=== PATIENT | female | born 1995 | race Caucasian/White ===

== ENCOUNTER 2018-09-14 19:09 | Emergency (ER) | payer BC, OTHER | END 2018-09-14 21:17 | disposition home or self-care (01) | LOC: ER FS 19:09 ==

== ENCOUNTER 2019-07-25 22:13 | Emergency (ER) | payer BC ==
[~2019-07-25] VITALS: Ht 162.6 cm; Wt 58.2 kg
[~2019-07-25 22:13] MED LIST: PROC-1 PO
--- NOTE | 2019-07-25 22:24 | ED GU-Female ---
General Chief Complaint: Abdominal/GI Problems Stated Complaint: ABD PAIN Source: patient Exam Limitations: no limitations History of Present Illness Date Seen by Provider: Jul 25, 2019 Time Seen by Provider: 22:23 Initial Comments Presents with 5 days of progressing upper abdominal pain. Initially intermittent for a few days and today has been constant. Associated nausea and vomiting 1 today. Also decreased appetite. Pain is sharp, nonradiating and worse at night. Denies any weight loss, blood in her stool or dark tarry stools. Denies previous occurrence of similar pain. Has not taken any antacids, has actually been taking ibuprofen for her stomach pain. Allergies and Home Medications Allergies Coded Allergies: hydrocodone (Verified Allergy, Mild, 09/14/18) Makes her headaches worse Home Medications Famotidine 10 Mg Tablet, 20 MG PO BID Prescribed by: NOA PEREZ on 07/25/192239 Ondansetron 4 Mg Tab.rapdis, 4 MG PO TID Prescribed by: NOA PEREZ on 07/25/192239 Prochlorperazine Maleate 10 Mg Tablet, 10 MG PO Q6H PRN for NAUSEA/VOMITING Prescribed by: ANJALI JOHNSTON on 09/14/182113 Patient Home Medication List Home Medication List Reviewed: Yes Review of Systems Review of Systems Constitutional: No fever, No malaise, No weakness Respiratory: No cough, No short of breath Cardiovascular: No chest pain, No edema, No palpitations Gastrointestinal: see HPI, abdominal pain; No constipation, No diarrhea, No dysphagia, No hematemesis, No heartburn, No jaundice; nausea, vomiting Genitourinary: no symptoms reported; denies dysuria, denies frequency, denies flank pain, denies hematuria Skin: No change in color, No lesions, No rash Past Dodrdla-Ikkpff-Bkccem Hx Patient Social History Recent Foreign Travel: No Contact w/Someone Who Travel: No Recent Hopitalizations: No Seasonal Allergies Seasonal Allergies: No Past Medical History Surgeries: Yes Tonsillectomy Respiratory: Yes Asthma Cardiac: No Neurological: Yes Headaches /Migraines Genitourinary: No Gastrointestinal: No Musculoskeletal: Yes Scoliosis Endocrine: No HEENT: No Cancer: No Psychosocial: No Integumentary: No Physical Exam Vital Signs Vital Signs - First Documented 07/25/19 22:25 Temp 36.4 Pulse 60 Resp 16 B/P (MAP) 119/73 (88) Pulse Ox 100 O2 Delivery Room Air Capillary Refill : Height, Weight, BMI Height: 5'2.00" Weight: 125lbs. 0oz. [id number]; BMI Method:Stated General Appearance: WD/WN, no apparent distress Cardiovascular: regular rate, rhythm, no edema Respiratory: chest non-tender, lungs clear Gastrointestinal: normal bowel sounds, soft, no organomegaly, no pulsatile mass; No distended, No guarding, No rebound; tenderness (mild epigastric); No hernia, No mass Back: normal inspection, no CVA tenderness Progress/Results/Core Measures Suspected Sepsis SIRS Temperature: Pulse: Respiratory Rate: Laboratory Tests 07/25/19 22:45: White Blood Count 7.3 Blood Pressure / Mean: Laboratory Tests 07/25/19 22:45: Creatinine 0.76, Platelet Count 286, Total Bilirubin 0.2 Results/Orders Lab Results Laboratory Tests Test 07/25/19 22:25 07/25/19 22:45 Range/Units Urine Color PALE YELLOW Urine Clarity CLEAR Urine pH 6.0 5-9 Urine Specific [place] <=1.005 1.016-1.022 Urine Protein NEGATIVE NEGATIVE Urine Glucose (UA) NEGATIVE NEGATIVE Urine Ketones NEGATIVE NEGATIVE Urine Nitrite NEGATIVE NEGATIVE Urine Bilirubin NEGATIVE NEGATIVE Urine Urobilinogen 0.2 < = 1.0 MG/DL Urine Leukocyte Esterase NEGATIVE NEGATIVE Urine RBC (Auto) NEGATIVE NEGATIVE Urine RBC NONE /HPF Urine WBC NONE /HPF Urine Squamous Epithelial Cells RARE /HPF Urine Crystals NONE /LPF Urine Bacteria NEGATIVE /HPF Urine Casts NONE /LPF Urine Mucus NEGATIVE /LPF Urine Culture Indicated NO Urine Test NEGATIVE NEGATIVE White Blood Count 7.3 4.3-11.0 10^3/uL Red Blood Count 4.52 4.35-5.85 10^6/uL Hemoglobin 12.8 11.5-16.0 G/DL Hematocrit 37 35-52 % Mean Corpuscular Volume 82 80-99 FL Mean Corpuscular Hemoglobin 28 25-34 PG Mean Corpuscular Hemoglobin Concent 35 32-36 G/DL Red Cell Distribution Width 12.5 10.0-14.5 % Platelet Count 286 130-400 10^3/uL Mean Platelet Volume 9.4 7.4-10.4 FL Neutrophils (%) (Auto) 48 42-75 % Lymphocytes (%) (Auto) 38 12-44 % Monocytes (%) (Auto) 11 0-12 % Eosinophils (%) (Auto) 2 0-10 % Basophils (%) (Auto) 1 0-10 % Neutrophils # (Auto) 3.5 1.8-7.8 X 10^3 Lymphocytes # (Auto) 2.7 1.0-4.0 X 10^3 Monocytes # (Auto) 0.8 0.0-1.0 X 10^3 Eosinophils # (Auto) 0.2 0.0-0.3 10^3/uL Basophils # (Auto) 0.0 0.0-0.1 10^3/uL Sodium Level 135 135-145 MMOL/L Potassium Level 3.8 3.6-5.0 MMOL/L Chloride Level 100 98-107 MMOL/L Carbon Dioxide Level 23 21-32 MMOL/L Anion Gap 12 5-14 MMOL/L Blood Urea Nitrogen 16 7-18 MG/DL Creatinine 0.76 0.60-1.30 MG/DL Estimat Glomerular Filtration Rate > 60 BUN/Creatinine Ratio 21 Glucose Level 92 70-105 MG/DL Calcium Level 9.3 8.5-10.1 MG/DL Corrected Calcium 9.4 8.5-10.1 MG/DL Total Bilirubin 0.2 0.1-1.0 MG/DL Aspartate Amino Transf (AST/SGOT) 15 5-34 U/L Alanine Aminotransferase (ALT/SGPT) 9 0-55 U/L Alkaline Phosphatase 43 40-136 U/L Total Protein 6.8 6.4-8.2 GM/DL Albumin 3.9 3.2-4.5 GM/DL Lipase 44 8-78 U/L My Orders Orders - ROVENSTINE,NOA L DO Ua Culture If Indicated (07/25/19 22:21) Hcg,Qualitative Urine (07/25/19 22:21) Cbc With Automated Diff (07/25/19 22:29) Comprehensive Metabolic Panel (07/25/19 22:29) Lipase (07/25/19 22:29) Abdomen (Kub) 1 View (07/25/19 22:29) Famotidine Tablet (Pepcid Tablet) (07/25/19 22:30) Ondansetron Oral Dissolve Tab (Zofran (07/25/19 22:29) Antacid Suspension (Mylanta Suspension (07/25/19 22:30) Lidocaine 2% Viscous 15 Ml (Xylocaine Vi (07/25/19 22:30) Medications Given in ED Current Medications Medications Dose Ordered Sig/Ed Route Start Time Stop Time Status Last Admin Dose Admin Al Hydrox/Mg Hydrox/Simethicone 30 ml ONCE ONCE PO 07/25/19 22:30 07/25/19 22:32 DC 07/25/19 22:42 30 ML Famotidine 20 mg ONCE ONCE PO 07/25/19 22:30 07/25/19 22:32 DC 07/25/19 22:42 20 MG Lidocaine HCl 5 ml ONCE ONCE PO 07/25/19 22:30 07/25/19 22:33 DC 07/25/19 22:42 5 ML Vital Signs/I&O 07/25/19 07/25/19 22:25 23:35 Temp 36.4 Pulse 60 68 Resp 16 16 B/P (MAP) 119/73 (88) 108/63 Pulse Ox 100 97 O2 Delivery Room Air Room Air Capillary Refill : Departure Impression Primary Impression: Epigastric abdominal pain Disposition: HOME, SELF-CARE Condition: Improved Departure-Patient Inst. Referrals: JOE MAN MD (PCP/Family) Primary Care Physician Patient Instructions: Gastritis (DC) Scripts Ondansetron (Ondansetron Odt) 4 Mg Tab.rapdis 4 MG PO TID for Nausea, #10 TAB Prov: NOA PEREZ DO 07/25/19 Famotidine (Pepcid AC) 10 Mg Tablet 20 MG PO BID, #30 TAB Prov: MESSISTNOA BURR DO 07/25/19 NOA PEREZ DO Jul 25, 2019 22:24
[2019-07-25] MEDS ORDERED: ONDANSETRON 4 MG (ZOFRAN) ORAL DISSOLVE TAB PO STA (22:29)
[2019-07-25] MEDS ORDERED: LIDOCAINE 2% VISCOUS 15 ML UDC PO ONE (22:30)
[2019-07-25] MEDS ORDERED: FAMOTIDINE 20 MG (PEPCID) TABLET PO ONE (22:30)
[2019-07-25] MEDS ORDERED: ANTACID SUSP 30 ML UDC (MYLANTA) PO ONE (22:30)
[2019-07-25 22:36] LABS: BILIRUBIN,URINE NEGATIVE (NEGATIVE); CLARITY,URINE CLEAR; COLOR,URINE PALE YELLOW; GLUCOSE, URINE (UA) NEGATIVE (NEGATIVE); KETONES,URINE NEGATIVE (NEGATIVE); LEUKOCYTE ESTERASE ,URINE NEGATIVE (NEGATIVE); NITRITE,URINE NEGATIVE (NEGATIVE); PROTEIN,URINE NEGATIVE (NEGATIVE)
[2019-07-25 22:37] LABS: BACTERIA,URINE NEGATIVE /HPF; SQUAMOUS EPITHELIAL CELL,UR RARE /HPF
[2019-07-25] MEDS ORDERED: ONDA4TAB11 PO (22:40)
[2019-07-25] MEDS ORDERED: FAMO10TA43 PO (22:40)
[2019-07-25 22:52] LABS: HEMATOCRIT 37 % (35-52); HEMOGLOBIN 12.8 G/DL (11.5-16.0); MEAN CORPUSCULAR HEMOGLOBIN 28 PG (25-34); MEAN CORPUSCULAR HGB CONC 35 G/DL (32-36); MEAN CORPUSCULAR VOLUME 82 FL (80-99); MEAN PLATELET VOLUME 9.4 FL (7.4-10.4); PLATELET COUNT 286 10^3/uL (130-400); RED CELL DISTRIBUTION WIDTH 12.5 % (10.0-14.5); WHITE BLOOD COUNT 7.3 10^3/uL (4.3-11.0)
[2019-07-25 22:53] LABS: BASOPHILS % (AUTO) 1 % (0-10); EOSINOPHILS % (AUTO) 2 % (0-10); LYMPHOCYTES % (AUTO) 38 % (12-44); MONOCYTES % (AUTO) 11 % (0-12); NEUTROPHILS % (AUTO) 48 % (42-75)
[2019-07-25 22:54] LABS: EOSINOPHILS # (AUTO) 0.2 10^3/uL (0.0-0.3); LYMPHOCYTES # (AUTO) 2.7 X 10^3 (1.0-4.0); MONOCYTES # (AUTO) 0.8 X 10^3 (0.0-1.0); NEUTROPHILS # (AUTO) 3.5 X 10^3 (1.8-7.8)
[2019-07-25 23:20] LABS: ALANINE AMINOTRANSFERASE 9 U/L (0-55); ALKALINE PHOSPHATASE 43 U/L (40-136); BILIRUBIN,TOTAL 0.2 MG/DL (0.1-1.0); BUN/CREATININE RATIO 21; CALCIUM 9.3 MG/DL (8.5-10.1); CARBON DIOXIDE 23 MMOL/L (21-32); CHLORIDE 100 MMOL/L (98-107); CREATININE SERUM 0.76 MG/DL (0.60-1.30); GFR ESTIMATED > 60; GLUCOSE 92 MG/DL (70-105); POTASSIUM 3.8 MMOL/L (3.6-5.0); SODIUM 135 MMOL/L (135-145); TOTAL PROTEIN 6.8 GM/DL (6.4-8.2)
[2019-07-25 23:21] LABS: ALBUMIN 3.9 GM/DL (3.2-4.5); LIPASE 44 U/L (8-78)
--- OUTSIDE RECORDS SUMMARY | 2019-07-25 23:29 | XMS REPORT ---
Author Author Clementine Rivera Organization [facility] Address [address] [place] [address] Care Team Providers Care Product Development Coordinator Name Role Phone FRANK Rivera Unavailable PROBLEMS Type Condition ICD9-CM Code [id number] Code Onset Dates Condition S tatus SNOMED Code Problem Mild episode of recurrent major depressive disorder F33.0 Active 606309337 ALLERGIES No Information ENCOUNTERS Encounter Location Date Diagnosis [address] [id number] [address] June, Encounter for surveillance o f contraceptive pills Z30.41 [facility] [address] [id number], [place] [address] June, Open bite, right ankle, init ial encounter S91.051A and Bitten by dog, initial encounter W54.0XXA [address] [id number] [address] June, Well woman exam Z01.419 ; Sc reening for STDs (sexually transmitted diseases) Z11.3 ; Encounter for immunization Z23 and Rectal bleeding K62.[address] [id number] [address] May, Mild episode of recurrent ma jason depressive disorder F33.0 ; Rectal bleeding K62.5 ; Encounter for surveillance of contraceptive pills Z30.41 ; Right otitis media, unspecified otitis media type H66.91 ; Yeast infection B37.9 and Neuralgia M79.[address] [id number], [place] [address] May, [facility] [address] [id number], [place] [address] May, Acute recurrent frontal sinu sitis J01.11 [facility] [address] [id number] [address] Apr, [facility] [address] [id number], [place] [address] Mar, Cough R05 ; Exposure to the flu Z20.828 ; Acute frontal sinusitis, recurrence not specified J01.10 and Right otitis media, unspecified otitis media type H66.91 [facility] [address] [id number], [place] [address] Feb, [facility] [address] [id number], [place] [address] Feb, Right otitis media, unspecif ied otitis media type H66.91 [facility] [address] [id number], [place] [address] Feb, [facility] [address] [id number], [place] [address] Jan, Viral URI J06.9 and Cough R0 5 [facility] [address] [id number], [place] [address] Dec, [facility] [address] [id number], [place] [address] Dec, Acute non-recurrent pansinus itis J01.40 [facility] [address] [id number], [place] [address] Aug, Acute nasopharyngitis J00 [facility] [address] [id number], [place] [address] Aug, Acute nonintractable headach e, unspecified headache type R51 ; Nausea R11.0 and Abdominal pain R10.9 [facility] [place] [address] [id number], [place] [address] June, [facility] [address] [id number] [place] [address] June, [address] [id number] [place] [address] Apr, [facility] [address] [facility] [id number] [place] [address] Aug, IMMUNIZATIONS No Known Immunizations SOCIAL HISTORY Never Assessed REASON FOR VISIT PLAN OF CARE VITAL SIGNS MEDICATIONS Unknown Medications RESULTS No Results PROCEDURES No Known procedures INSTRUCTIONS MEDICATIONS ADMINISTERED No Known Medications MEDICAL (GENERAL) HISTORY Type Description Date Medical History depression Medical History asthma - mild intermittent Medical History neuro disorder Hospitalization History pneumonia-when she was a child
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
--- OUTSIDE RECORDS SUMMARY | 2019-07-25 23:29 | XMS REPORT ---
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 for Health Information Technology (ONC [id number].[id number]) and the National Committee for Wire Coiler Machine Operator (NCQA, as an eMeasure certified technology). FOR RECORDS PERTAINING TO PATIENTS WHO ARE OR HAVE BEEN ENROLLED IN A CHEMICAL D EPENDENCY/SUBSTANCE ABUSE PROGRAM, SOME INFORMATION MAY BE OMITTED. This clinica l summary was aggregated from multiple sources. Caution should be exercised in using it in the provision of clinical care. This summary normalizes information from multiple sources, and as a consequence, information in this document may ma terially change the coding, format and clinical context of patient data. In maxi tion, data may be omitted in some cases. CLINICAL DECISIONS SHOULD BE BASED ON T HE PRIMARY CLINICAL RECORDS. [employer] [facility]. provides no warranty or guara ntee of the accuracy or completeness of information in this document.The followi ng information is based on time limited clinical information
[2019-07-25 23:35] VITALS: BP 108/63
--- NOTE | 2019-07-26 06:12 | Diagnostic Imaging Report ---
INDICATION: Intermittent epigastric pain. TIME OF EXAM: 10:37 PM FINDINGS: Bowel gas pattern is unremarkable. No obstruction is seen. There is moderate stool in the right colon. No pathologic calcifications are identified. There is no free air. IMPRESSION: No acute feature is detected. Dictated by: Dictated on workstation # [id number]
== END 2019-07-25 23:35 | disposition home or self-care (01) ==
LOC: EDUNIT# 22:13 → ER FS 22:13
DX: R10.13 Epigastric pain (principal); G43.909 Migraine, unspecified, not intractable, without status migrainosus; Z88.5 Allergy status to narcotic agent
CPT/HCPCS: 36415; 74018; 80053; 81000; 83690; 84703; 85025

== ENCOUNTER 2020-11-07 11:10 | Emergency (ER) | payer BC ==
[~2020-11-07] VITALS: Ht 157 cm; Wt 56.0 kg
[~2020-11-07 11:10] MED LIST changes: +FAMO10TA43 PO; +ONDA4TAB11 PO
[2020-11-07] MEDS ORDERED: ONDANSETRON 4 MG/2 ML (SDV) Z0FRAN ONE (11:21)
[2020-11-07] MEDS ORDERED: NS IV 1000 ML 1,000 ML ONE (11:21)
[2020-11-07] MEDS ORDERED: FAMOTIDINE 20MG/2ML IV (PEPCID) ONE (11:22)
[2020-11-07] MEDS ORDERED: NS IV 1000 ML 1,000 ML IV SCH (11:45)
[2020-11-07] MEDS ORDERED: ONDANSETRON 4 MG/2 ML (SDV) Z0FRAN IVP ONE (11:45)
[2020-11-07] MEDS ORDERED: FAMOTIDINE 20MG/2ML IV (PEPCID) IVP ONE (11:45)
--- NOTE | 2020-11-07 11:46 | ED Abdominal Pain ---
General Chief Complaint: Abdominal/GI Problems Stated Complaint: VOMITING Nursing Triage Note: PT REPORTS SHE DRANK TOO MUCH ALCOHOL AT HER [employer]ING [employer] LAST PM. SHE STARTED VOMITING AT 2200 AND HAS OFF AND ON ALL NIGHT. Source of Information: Patient Exam Limitations: No Limitations History of Present Illness Date Seen by Provider: Nov 07, 2020 Time Seen by Provider: 11:30 Initial Comments Patient is a 25-year-old female who presents with dizziness, nausea vomiting after excessive alcohol intake last night during her wedding. Patient states she has been vomiting for the past 12 hours. Reports mild epigastric pain and headache. No other symptoms or complaints Timing/Duration: 12 Hours Severity/Quality: Mild Location: Other Radiation: Other Activities at Onset: Other Modifying Factors: Improves With Other Allergies and Home Medications Allergies Coded Allergies: hydrocodone (Verified Allergy, Mild, 09/14/18) Makes her headaches worse Patient Home Medication List Home Medication List Reviewed: Yes Famotidine (Pepcid AC) 10 Mg Tablet, 20 MG PO BID Prescribed by: NOA PEREZ on 07/25/190 Ondansetron (Ondansetron Odt) 4 Mg Tab.rapdis, 4 MG PO TID Prescribed by: NOA PEREZ on 07/25/19 2240 Prochlorperazine Maleate (Compazine) 10 Mg Tablet, 10 MG PO Q6H PRN for NAUSEA/VOMITING Prescribed by: ANJALI JOHNSTON on 09/14/182113 Review of Systems Review of Systems Constitutional: see HPI EENTM: See HPI Respiratory: See HPI Cardiovascular: See HPI Gastrointestinal: See HPI Genitourinary: See HPI Musculoskeletal: see HPI Skin: see HPI Psychiatric/Neurological: See HPI Endocrine: See HPI Hematologic/Lymphatic: See HPI All Other Systems Reviewed Negative Unless Noted: Yes Past Helkfhv-Ncesmr-Egkqlm Hx Patient Social History Tobacco Use?: Yes Use of E-Cig and/or Vaping dev: No Substance use?: No Alcohol Use?: Yes Alcohol type: Hard Liquor Alcohol Frequency: Once in a while Pt feels they are or have been: No Immunizations Up To Date First/Initial COVID19 Vaccinat: APRIL 2020 Second COVID19 Vaccination [place]: MAY 2020 COVID19 Vaccine [employer]: [email or web address] Seasonal Allergies Seasonal Allergies: No Past Medical History Surgeries: Yes Tonsillectomy Respiratory: Yes Asthma Cardiac: No Neurological: Yes Headaches /Migraines Genitourinary: No Gastrointestinal: No Musculoskeletal: Yes Scoliosis Endocrine: No HEENT: No Cancer: No Psychosocial: No Integumentary: No Physical Exam Vital Signs Vital Signs - First Documented 11/07/20 11:15 Temp 36.9 Pulse 102 Resp 18 B/P (MAP) 130/78 (95) Pulse Ox 98 O2 Delivery Room Air Capillary Refill : Less Than 3 Seconds Height/Weight/BMI Height: 5'2.00" Weight: 125lbs. 0oz. 56.067641ny; 22.00 BMI Method:Stated General Appearance: WD/WN, no apparent distress HEENT: PERRL/EOMI Respiratory: chest non-tender, lungs clear Cardiovascular: normal peripheral pulses, regular rate, rhythm Gastrointestinal: non tender, soft Neurologic/Psychiatric: no motor/sensory deficits, alert, oriented x 3 Focused Exam Sepsis Stage: Ruled Out Progress/Results/Core Measures Results/Orders My Orders Orders - KAREEM DILLARD DO Ondansetron Injection (Zofran Injectio (11/07/20 11:21) Ns Iv 1000 Ml (Sodium Chloride 0.9%) (11/07/20 11:21) Famotidine Injection (Pepcid Injection) (11/07/20 11:22) Ondansetron Injection (Zofran Injectio (11/07/20 11:45) Famotidine Injection (Pepcid Injection) (11/07/20 11:45) Ns Iv 1000 Ml (Sodium Chloride 0.9%) (11/07/20 11:45) Medications Given in ED Current Medications Medications Dose Ordered Sig/Ed Route Start Time Stop Time Status Last Admin Dose Admin Famotidine 20 mg ONCE ONCE IVP 11/07/20 11:45 11/07/20 11:46 DC 11/07/20 11:34 20 MG Ondansetron HCl 4 mg ONCE ONCE IVP 11/07/20 11:45 11/07/20 11:46 DC 11/07/20 11:34 4 MG Vital Signs/I&O 11/07/20 11:15 Temp 36.9 Pulse 102 Resp 18 B/P (MAP) 130/78 (95) Pulse Ox 98 O2 Delivery Room Air Blood Pressure Mean: 95 Departure Communication (Admissions) IV fluids, Pepcid and Zofran given. Symptomatic improvement. We will continue with supportive care with PCP follow-up as needed. Return precautions reviewed. 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 Decision time for Depature: 12:08 Referrals: MOSES WHITE APRN (PCP) Primary Care Physician [facility]JASWINDER (Family) Primary Care Physician Patient Instructions: Gastritis (DC) Add. Discharge Instructions: Please drink clear liquids then progressed to soft bland diet as tolerated. Take Zofran and Pepcid OTC as needed for nausea and stomach discomfort. All discharge instructions reviewed with patient and/or family. Voiced understanding. Scripts Ondansetron (Ondansetron Odt) 4 Mg Tab.rapdis 4 MG PO Q6H, #14 TAB Prov: KAREEM DILLARD DO 11/07/20 KAREEM DILLARD DO Nov 07, 2020 11:46
[2020-11-07 12:08] VITALS: BP 122/72
[2020-11-07] MEDS ORDERED: ONDA4TAB11 PO (12:09)
== END 2020-11-07 12:11 | disposition home or self-care (01) ==
LOC: EDUNIT# 11:10 → ER FS 11:11
DX: K29.20 Alcoholic gastritis without bleeding (principal); J45.909 Unspecified asthma, uncomplicated; Z72.0 Tobacco use